=== PATIENT | female | born 1980 | race Two or more races ===

== ENCOUNTER 2016-12-22 19:28 | Emergency (ER) | payer OTHER ==
[2016-12-22 19:45] VITALS: BP 150/94; PULSE 80; TEMP 98.7; BMI 29.8
[2016-12-22] MEDS ORDERED: SODIUM CHLORIDE 500 ML IV STA (20:45)
[2016-12-22] MEDS ORDERED: methylPREDNISolone NA SUCC 125 MG/2 ML VIAL IVPB ONE (20:45)
[2016-12-22] MEDS ORDERED: METOCLOPRAMIDE HCL INJECTION 10 MG/2 ML VIAL IVPB ONE (20:47)
--- NOTE | 2016-12-22 21:00 | PDOC ---
History of Present Illness - General Chief Complaint: Headache Stated Complaint: HEAD PAIN/NUMBNESS Time Seen by Provider: 12/22/16 19:52 History Source: Patient Exam Limitations: No Limitations - History of Present Illness Initial Comments: 12/22/16 20:53 36yo Female patient w/ PmHx: Migraines, Asthma, Hypothyroid, GERD, Gastritis, Carpal Tunnel Surgery, Tubal Ligation, Cholecystectomy, Depression, Anxiety, and "multiple back problems," presents to ED c/o headache (Frontal) which began yesterday and today radiating down face with numbness, and dizziness. Patient was previously under the care of Dr. Luo, and has an appointment with Hayde Persaud 12/26/2016. Patient was recently prescribed Rizatriptan Benzoate 5mg by primary care office but states it is not working. She also was seen and evaluated by Dr. Grant (ophthalmology) and diagnosed with Cataracts, but states she has not gone back to him for follow-up. LNMP: Current. Neurology- Dr. Pretty. PCP- Dr. Santamaria Timing/Duration: reports: increasing, episodic. denies: 1/2 hour, 1 hour, 1-3 hours, 4-6 hours, 24 hours, 1 week, unknown, constant, decreasing, waxing and waning, other Severity: Yes: moderate. No: mild, severe Episode Description: See HPI Associated Symptoms: denies: denies symptoms, confusion, fatigue, fever/chills, insomnia, loss of consciousness, muscle spasms, nausea/vomiting, numbness in legs/feet, paresthesia, ringing in ears, seizures, sleepy, slurred speech, tingling in legs/feet, trouble walking, vision changes, weakness, other Past History - Travel Traveled outside of the country in the last 30 days: No Close contact w/someone who was outside of country & ill: No - Past Medical History Allergies/Adverse Reactions: Allergies Allergy/AdvReac Type Severity Reaction Status Date / Time omeprazole Allergy Verified 12/22/16 19:45 Home Medications: Ambulatory Orders Acetaminophen [Tylenol] 650 mg PO Q6H PRN 10/04/15 Acetaminophen/Caffeine/Butalb [Fioricet -] 1 - 2 tab PO Q6H PRN #28 tablet MDD 8 tabs 12/22/16 Paroxetine HCl [Paxil -] 10 mg PO DAILY 12/22/16 Rizatriptan Benzoate [Maxalt] 5 mg PO ASDIR 12/22/16 Asthma: Yes GI Disorders: Yes (HEARTBURN,ULCER) Psychiatric Problems: Yes (Depression) Thyroid Disease: Yes (HYPERACTIVE) - Surgical History Abdominal Surgery: (TUBAL LIGATION) Cholecystectomy: Yes - Immunization History Td Vaccination: Yes Immunization Up to Date: Yes - Suicide/Smoking/Psychosocial Hx Smoking Status: Yes Smoking History: Current some day smoker Years of Tobacco Use: 0 Have you smoked in the past 12 months: Yes Number of Cigarettes Smoked Daily: 3 Cigars Per Day: 0 Information on smoking cessation initiated: No 'Breaking Loose' booklet given: 08/30/15 Hx Alcohol Use: No Drug/Substance Use Hx: No Substance Use Type: None Neuro Specific PMHX - Complaint Specific PMHX Glaucoma: No Herniated Disk: No Laminectomy: No Migraine: Yes Multiple Sclerosis: No Neuropathy: No TIA: No Review of Systems - Review of Systems Able to Perform ROS?: Yes Is the patient limited Australian proficient: No Constitutional: No: Chills, Fever HEENTM: Yes: Cataracts. No: Eye Pain, Blurred Vision, Double Vision Respiratory: No: Cough, Shortness of Breath, Stridor, Wheezing Cardiac (ROS): No: Chest Pain, Chest Tightness ABD/GI: Yes: Nausea. No: Constipated, Diarrhea, Poor Appetite, Poor Fluid Intake, Vomiting, Abdominal cramping : No: Burning, Dysuria, Flank Pain, Hematuria, Pain Musculoskeletal: No: Back Pain, Muscle Pain, Muscle Weakness, Neck Pain Integumentary: No: Dryness, Erythema, Rash Neurological: Yes: Headache, Numbness, Dizziness. No: Paresthesia, Seizure, Tingling, Tremors, Weakness, Unsteady Gait, Ataxia Psychiatric: No: Anxiety, Depression All Other Systems: Reviewed and Negative *Physical Exam - Vital Signs Last Vital Signs Temp Pulse Resp BP Pulse Ox 98.7 F 80 18 150/94 100 12/22/16 19:41 12/22/16 19:41 12/22/16 19:41 12/22/16 19:41 12/22/16 19:41 - Physical Exam General Appearance: Yes: Nourished, Appropriately Dressed. No: Apparent Distress, Mild Distress, Moderate Distress, Severe Distress HEENT: positive: EOMI, DESMOND, Normal ENT Inspection, Normal Voice, Symmetrical, TMs Normal, Pharynx Normal. negative: Pharyngeal Erythema, Tonsillar Exudate, Tonsillar Erythema, Nasal Congestion, Rhinorrhea, TM Bulging, TM Dull, TM Erythema Neck: positive: Trachea midline, Supple. negative: Normal Thyroid, Rigid, Stridor, Lymphadenopathy (R), Lymphadenopathy (L), Tender lateral Respiratory/Chest: positive: Lungs Clear, Normal Breath Sounds. negative: Chest Tender, Respiratory Distress, Accessory Muscle Use, Labored Respiration, Rapid RR, Paradoxal Breathing, Rhonchi, Stridor, Wheezing Cardiovascular: positive: Regular Rhythm, Regular Rate Gastrointestinal/Abdominal: positive: Normal Bowel Sounds, Soft. negative: Distended, Guarding, Rebound, Tenderness Musculoskeletal: positive: Normal Inspection. negative: CVA Tenderness, Decreased Range of Motion, Vertebral Tenderness Extremity: positive: Normal Capillary Refill, Normal Inspection, Normal Range of Motion. negative: Pedal Edema, Swelling, Calf Tenderness, Erythema, Inflammation Integumentary: positive: Normal Color, Dry, Warm. negative: Erythema, Swelling Neurologic: positive: cognos bi developer II-XII NML intact, Fully Oriented, Alert, Normal Mood/ Affect, Normal Response, Motor Strength 5/5, Finger to Nose. negative: Facial Droop, Numbness, Confused, Disoriented ED Treatment Course - LABORATORY CBC & Chemistry Diagram: 12/22/16 21:00 12/22/16 21:00 - RADIOLOGY Radiology Studies Ordered: Category Date Time Status HEAD CT WITHOUT CONTRAST [CT] Stat CT Scan 12/22/16 20:45 Ordered *DC/Admit/Observation/Transfer Diagnosis at time of Disposition: Migraine headache Qualifiers: Migraine type: without aura Status migrainosus presence: without status migrainosus Intractability: not intractable Qualified Code(s): G43.009 - Migraine without aura, not intractable, without status migrainosus; G43.009 - Migraine without aura, not intractable, without status migrainosus; G43.009 - Migraine without aura, not intractable, without status migrainosus - Discharge Dispostion Disposition: HOME Condition at time of disposition: Improved Admit: No - Prescriptions Prescriptions: Acetaminophen/Caffeine/Butalb [Fioricet -] 1 - 2 tab PO Q6H PRN #28 tablet MDD 8 tabs PRN Reason: Severe headache - Patient Instructions Printed Discharge Instructions: DI for Headache, DI for Migraine Additional Instructions: Follow up with your Neurologist as discussed. Take medications as prescribed. Fioricet for severe headache not relieved by your other medications. Return if symptoms worsen, otherwise keep your appointment as scheduled for the . Print Language: MEXICAN NIH Stroke Scale - Last Known Well Date/Time & Onset Date Last Known Well: 12/22/16 Time Last Known Well: 08:00 - Initial Evaluation Level of consciousness: Alert Ask patient the month and their age: Answers both correctly Ask patient to open & close eyes; make fist and let go: Obeys both correctly Best gaze (horizontal eye movement): Normal Visual field testing: No visual field loss Facial paresis (Show teeth/raise eyebrows/close eyes tight): Normal symmetrical movement Motor Function: Left Arm: Normal Motor Function: Right Arm: Normal (extends arm 90 (or 45) degrees for 10 seconds without drift Motor Function: Left Leg: Normal (extends leg 30 degrees for 5 seconds without drift) Motor Function: Right Leg: Normal (extends leg 30 degrees for 5 seconds without drift) Limb Ataxia: No ataxia Sensory(Use pinprick test arms,legs,trunk,face/side to side): Normal Best language (Describe picture, name items, read sentences): No Aphasia Dysarthria (read several words): Normal articulation Extinction and Inattention: No abnormality - Total Score NIH Stroke Scale Score: 0
[2016-12-22] MEDS ORDERED: METOCLOPRAMIDE HCL INJECTION 10 MG/2 ML VIAL ONE (21:10)
[2016-12-22] MEDS ORDERED: methylPREDNISolone NA SUCC 125 MG/2 ML VIAL ONE (21:11)
[2016-12-22 21:17] LABS: EOSINOPHIL 2.4 % (0-4.5); MCH 28.2 pg (25.7-33.7); MCHC 33.9 g/dl (32.0-36.0); MEAN CELL VOLUME 83.3 fl (80-96); MEAN PLT VOLUME 8.2 fl (7.5-11.1); PLATELET COUNT 308 K/MM3 (134-434); RDW 13.6 % (11.6-15.6); WHITE BLOOD COUNT 8.9 K/mm3 (4.0-10.0)
[2016-12-22 21:48] LABS: ALK PHOS 84 U/L (45-117); ANION GAP 6 (8-16); BILIRUBIN,TOTAL 0.2 mg/dL (0.2-1.0); CALCIUM 8.8 mg/dL (8.5-10.1); CO2 29 mmol/L (21-32); CREATININE 0.5 mg/dL (0.55-1.02); GLUCOSE,RANDOM 88 mg/dL (74-106); SGPT/ALT 25 U/L (12-78); TOT PROT 7.1 g/dl (6.4-8.2)
[2016-12-22 21:50] LABS: SGOT/AST 16 U/L (15-37)
[2016-12-22 22:38] LABS: URINE APPEARANCE CLEAR; URINE BILIRUBIN NEGATIVE (NEGATIVE); URINE BLOOD 1+ (NEGATIVE); URINE COLOR STRAW; URINE GLUCOSE (UA) NEGATIVE (NEGATIVE); URINE KETONE NEGATIVE (NEGATIVE); URINE NITRITE NEGATIVE (NEGATIVE); URINE PROTEIN NEGATIVE (NEGATIVE); URINE UROBILINOGEN NEGATIVE mg/dL (0.2-1.0)
[2016-12-22 22:48] LABS: URINE BACTERIA RARE /hpf (NONE SEEN); URINE HYALINE CAST 3 /lpf; URINE MUCUS RARE; URINE RBC 2 /hpf (0-3); URINE WBC 1 /hpf (3-5)
[2016-12-23 09:46] LABS: URINE LEUK ESTERASE Negative (NEGATIVE)
== END 2016-12-22 23:39 | disposition home or self-care (01) ==
LOC: SUPCPDRO 19:28 → JER 19:28
DX: G43.009 Migraine without aura, not intractable, without status migrainosus (principal)
CPT/HCPCS: 36415; 70450-TC; 80053; 81003; 81015; 84703; 85025; 85651; 99282-25

== ENCOUNTER 2017-03-17 20:40 | Emergency (ER) | payer OTHER ==
--- NOTE | 2017-03-17 20:46 | PDOC ---
Rapid Medical Evaluation Medical Evaluation: Allergies Allergy/AdvReac Type Severity Reaction Status Date / Time omeprazole Allergy Verified 12/22/16 19:45 03/17/17 20:44 I have performed a brief in-person evaluation of this patient. The patient presents with a chief complaint of: Body aches, BOONE, cough w/ fever x 3 weeks. Tx for strep throat 3 weeks ago. H/o asthma. Pertinent physical exam findings:Stable w/ clear lungs I have ordered the following: nothing The patient will proceed to the ED for further evaluation.
[2017-03-17 20:47] VITALS: BP 121/76; PULSE 115; TEMP 99.7; BMI 29.5
--- NOTE | 2017-03-17 21:15 | PDOC ---
History of Present Illness - General Chief Complaint: Asthma Stated Complaint: ASHMA/SOB Time Seen by Provider: 03/17/17 20:43 History Source: Patient Exam Limitations: No Limitations - History of Present Illness Initial Comments: 03/17/17 21:10 This is a 36-year-old female with past medical history of asthma, herniated disc , cholecystectomy, tubal ligation presents emergency Department with 2 days of fever and body aches. Patient states she's been coughing and having bodyaches with a fever for couple of days and everybody else in the house is experiencing similar symptoms. Patient reports intermittent shortness of breath. She denies fevers, chills, chest pain, nausea or vomiting. Past History - Past Medical History Allergies/Adverse Reactions: Allergies Allergy/AdvReac Type Severity Reaction Status Date / Time omeprazole Allergy Verified 12/22/16 19:45 Home Medications: Ambulatory Orders Acetaminophen [Tylenol] 650 mg PO Q6H PRN 10/04/15 Acetaminophen/Caffeine/Butalb [Fioricet -] 1 - 2 tab PO Q6H PRN #28 tablet MDD 8 tabs 12/22/16 Paroxetine HCl [Paxil -] 10 mg PO DAILY 12/22/16 Rizatriptan Benzoate [Maxalt] 5 mg PO ASDIR 12/22/16 Oseltamivir Phosphate [Tamiflu -] 75 mg PO BID #10 capsule 03/17/17 Asthma: Yes COPD: No GI Disorders: Yes (HEARTBURN,ULCER) Psychiatric Problems: Yes (Depression) Thyroid Disease: Yes (HYPERACTIVE) - Surgical History Abdominal Surgery: (TUBAL LIGATION) Cholecystectomy: Yes - Immunization History Td Vaccination: Yes Immunization Up to Date: Yes - Suicide/Smoking/Psychosocial Hx Smoking Status: Yes Smoking History: Former smoker Years of Tobacco Use: 0 Have you smoked in the past 12 months: Yes Number of Cigarettes Smoked Daily: 3 Cigars Per Day: 0 Information on smoking cessation initiated: No 'Breaking Loose' booklet given: 08/30/15 Hx Alcohol Use: No Drug/Substance Use Hx: No Substance Use Type: None Review of Systems - Review of Systems Able to Perform ROS?: Yes Is the patient limited Thai proficient: No Constitutional: Yes: See HPI HEENTM: Yes: See HPI Respiratory: Yes: See HPI Cardiac (ROS): No: Symptoms Reported ABD/GI: No: Symptoms Reported : No: Symptoms Reported Musculoskeletal: No: Symptoms Reported Integumentary: No: Symptoms Reported Neurological: No: Symptoms reported Endocrine: No: Symptoms Reported Hematologic/Lymphatic: No: Symptoms Reported *Physical Exam - Vital Signs Last Vital Signs Temp Pulse Resp BP Pulse Ox 99.7 F H 115 H 18 121/76 98 03/17/17 20:44 03/17/17 20:44 03/17/17 20:44 03/17/17 20:44 03/17/17 20:44 - Physical Exam General Appearance: Yes: Appropriately Dressed. No: Apparent Distress HEENT: positive: Normal ENT Inspection Neck: positive: Trachea midline, Supple Respiratory/Chest: positive: Lungs Clear, Normal Breath Sounds. negative: Respiratory Distress, Accessory Muscle Use Cardiovascular: positive: Regular Rhythm, Regular Rate Gastrointestinal/Abdominal: positive: Normal Bowel Sounds, Soft. negative: Tender Musculoskeletal: positive: Normal Inspection. negative: CVA Tenderness Extremity: positive: Normal Capillary Refill, Normal Inspection Integumentary: positive: Normal Color, Dry, Warm Neurologic: positive: grant coordinator II-XII NML intact, Fully Oriented, Alert, Normal Mood/ Affect, Normal Response, Motor Strength 5/5 Medical Decision Making - Medical Decision Making 03/17/17 21:12 A/P: This is a 36-year-old female with past medical history of asthma, herniated disc , cholecystectomy, tubal ligation presents emergency Department with 2 days of fever and body aches. Patient states she's been coughing and having bodyaches with a fever for couple of days and everybody else in the house is experiencing similar symptoms. Patient reports intermittent shortness of breath. She denies fevers, chills, chest pain, nausea or vomiting. Oropharynx is clear without erythema or exudates. No cervical lymphadenopathy noted. Lungs clear to auscultation bilaterally. Speaking full sentences. S1 and S2 present. No murmur rub or gallop. Abdomen soft nontender nondistended. Diagnosis viral illness likely influenza I'll treat the patient with Tamiflu 75 mg twice a day for the next 5 days. Patient given strict discharge instructions with strict return precautions. *DC/Admit/Observation/Transfer Diagnosis at time of Disposition: URI (upper respiratory infection) Qualifiers: URI type: unspecified viral URI Qualified Code(s): J06.9 - Acute upper respiratory infection, unspecified; B97.89 - Other viral agents as the cause of diseases classified elsewhere; B97.89 - Other viral agents as the cause of diseases classified elsewhere - Discharge Dispostion Disposition: HOME Condition at time of disposition: Stable Admit: No - Prescriptions Prescriptions: Oseltamivir Phosphate [Tamiflu -] 75 mg PO BID #10 capsule - Referrals Referrals: Keeley Farah MD [Primary Care Provider] - - Patient Instructions Additional Instructions: Rest, drink lots of fluids: Teas, water, soups, Pedialyte Saltwater gargles Steamy showers/seem to face break up mucus Avoid contact with others until fevers and cough resolved Lots of handwashing and good hygiene Continue [id number] medications for symptomatic relief Tylenol or Motrin for fever and pain Followup with private physician in one to 2 days as needed Return to emergency department for worsened symptoms, fevers, dehydration - Post Discharge Activity
== END 2017-03-17 22:00 | disposition home or self-care (01) ==
LOC: JERFT 20:40
DX: J06.9 Acute upper respiratory infection, unspecified (principal); B97.89 Other viral agents as the cause of diseases classified elsewhere
CPT/HCPCS: 99281-25

== ENCOUNTER 2018-08-12 00:36 | Emergency (ER) | payer OTHER | END 2018-08-12 04:47 | disposition home or self-care (01) | LOC: JER 00:36 ==

== ENCOUNTER 2018-08-12 14:34 | Emergency (ER) | payer OTHER | END 2018-08-12 20:33 | disposition home or self-care (01) | LOC: JER 14:34 ==

== ENCOUNTER 2018-10-13 11:52 | Day surgery (SDC) | payer OTHER ==
[2018-10-06 16:38] VITALS: BMI 31.8
[2018-10-13] MEDS ORDERED: PROPOFOL 20 ML ONE ×2 (12:55)
[2018-10-13 13:52] VITALS: TEMP 98.5
[2018-10-13 13:54] VITALS: BP 113/63; PULSE 76
== END 2018-10-13 14:25 | disposition home or self-care (01) ==
LOC: FASU-ENDO 11:52
PROVIDERS: ATTEND Internal Medicine Gastroenterology
PROC: 0DJD8ZZ Inspection of Lower Intestinal Tract, Via Natural or Artificial Opening Endoscopic (ICD-10-PCS; principal; 2018-10-13 13:08)
DX: R10.9 Unspecified abdominal pain (principal); K64.8 Other hemorrhoids
CPT/HCPCS: 84703

== ENCOUNTER 2019-01-19 12:06 | Day surgery (SDC) | payer OTHER ==
[2019-01-14 13:08] VITALS: BMI 32.3
[2019-01-19] MEDS ORDERED: PROPOFOL 20 ML ONE (12:19)
[2019-01-19 16:30] VITALS: TEMP 98.2
[2019-01-19 16:40] VITALS: PULSE 85
[2019-01-19 16:54] VITALS: BP 107/69
--- NOTE | 2019-01-21 16:23 | PATH ---
Surgical Pathology Report Patient Name: TRACEY VICENTE [facility]. Rec. #: [id number] /Age/Gender: 1980 (Age: 38) / F Account: [id number] Location: [facility] Taken: 01/19/2019 Received: 01/19/2019 Reported: 01/21/2019 Physicians: Beatriz Aguilar M.D. Specimen(s) Received A: SECOND PORTION OF DUODENUM B: GASTRIC POLYP C: GASTRIC ANTRUM D: GE JUNCTION Clinical History Abdominal pain Postoperative diagnosis: Gastritis, gastric polyp, small hiatal hernia Final Diagnosis A. SECOND PORTION OF DUODENUM, BIOPSY: MODERATE CHRONIC ACTIVE DUODENITIS. B. GASTRIC POLYP, BIOPSY: GASTRIC FUNDIC GLAND POLYP. IMMUNOSTAIN IS NEGATIVE FOR H PYLORI ORGANISMS. C. GASTRIC ANTRUM, BIOPSY: MILD CHRONIC GASTRITIS. IMMUNOSTAIN IS NEGATIVE FOR H. PYLORI ORGANISMS. D. GE JUNCTION, BIOPSY: COLUMNAR (GASTRIC CARDIA-TYPE) MUCOSA SHOWING MILD CHRONIC INFLAMMATION. NEGATIVE FOR INTESTINAL METAPLASIA. Electronically Signed Vikki Vora M.D. Gross Description A. Received in formalin, labeled "biopsy second portion of duodenum" is a devine, irregular portion of soft tissue measuring 0.2 cm. in greatest dimension. The specimen is submitted in toto in one cassette. B. Received in formalin, labeled "biopsy gastric polyp" is a devine, irregular portion of soft tissue measuring 0.2 cm. in greatest dimension. The specimen is submitted in toto in one cassette. C. Received in formalin, labeled "biopsy gastric antrum" is a devine, irregular portion of soft tissue measuring 0.3 cm. in greatest dimension. The specimen is submitted in toto in one cassette. D. Received in formalin, labeled "biopsy GE junction" is a devine, irregular portion of soft tissue measuring 0.2 cm. in greatest dimension. The specimen is submitted in toto in one cassette. 01/20/2019 saudi01/20/2019
== END 2019-01-19 14:45 | disposition home or self-care (01) ==
LOC: FASU-ENDO 12:06
PROVIDERS: ATTEND Internal Medicine Gastroenterology
PROC: 0DB68ZX Excision of Stomach, Via Natural or Artificial Opening Endoscopic, Diagnostic (ICD-10-PCS; 2019-01-19)
PROC: 0DB48ZX Excision of Esophagogastric Junction, Via Natural or Artificial Opening Endoscopic, Diagnostic (ICD-10-PCS; 2019-01-19)
PROC: 0DB98ZX Excision of Duodenum, Via Natural or Artificial Opening Endoscopic, Diagnostic (ICD-10-PCS; principal; 2019-01-19 13:36)
DX: K29.50 Unspecified chronic gastritis without bleeding (principal); K29.80 Duodenitis without bleeding; K44.9 Diaphragmatic hernia without obstruction or gangrene; K31.7 Polyp of stomach and duodenum; K20.9 Esophagitis, unspecified; R10.13 Epigastric pain
CPT/HCPCS: 84703; 88305-TC; 88342-TC

== ENCOUNTER 2019-03-08 22:08 | Emergency (ER) | payer OTHER ==
[2019-03-08 22:13] VITALS: BMI 31.6
--- NOTE | 2019-03-08 22:29 | PDOC ---
History of Present Illness - General Chief Complaint: Pain Stated Complaint: VOMITING/FEVER/PAIN History Source: Patient Exam Limitations: No Limitations - History of Present Illness Initial Comments: 03/08/19 22:25 Patient is a 38-year-old female with esophageal hernia, hyperthyroid not on meds , gastritis, diverticulosis, carpal tunnel right hand, BTL, cholecystectomy, removal of scalp cyst, herniated disc cervical spine, c/o abdominal pain since this morning. States she had about 0130 this morning she ate from [employer] and then woke up with symptoms of nausea, vomiting and abdominal pain. States the pain is continuous stabbing /. States she has had multiple episodes of vomiting now just bilious. States her child who also had [employer] is here for the same symptoms of nausea and vomiting. States she felt warm and had chills. No diarrhea. No flu shot this year. LMP 02/16/2019 PMD: Dr. Avelar PMHX: As above PSOCHX: neg etoh, drug, neg cig ALL: NKDA GENERAL/CONSTITUTIONAL: [No fever or chills. No weakness. No weight change.] HEAD, EYES, EARS, NOSE AND THROAT: [No change in vision. No ear pain or discharge. No sore throat.] CARDIOVASCULAR: [No chest pain or shortness of breath.] RESPIRATORY: [No cough, wheezing, or hemoptysis.] GASTROINTESTINAL: [(+) nausea, vomiting, (-)diarrhea or constipation. No rectal bleeding.] GENITOURINARY: [No dysuria, frequency, or change in urination.] MUSCULOSKELETAL: [No joint or muscle swelling or pain. No neck or back pain.] SKIN AND BREASTS: [No rash or easy bruising.] NEUROLOGIC: [No headache, vertigo, loss of consciousness, or loss of sensation.] PSYCHIATRIC: [No depression or anxiety.] ENDOCRINE: [No increased thirst. No abnormal weight change.] HEMATOLOGIC/LYMPHATIC: [No anemia, easy bleeding, or history of blood clots.] ALLERGIC/IMMUNOLOGIC: [No hives or skin allergy. No latex allergy.] GENERAL: [The patient is awake, alert, and fully oriented, in mild distress.] HEAD: [Normal with no signs of trauma.] EYES: [Pupils equal, round and reactive to light, extraocular movements intact, sclera anicteric, conjunctiva clear.] ENT: [Ears normal, nares patent, oropharynx clear without exudates. Moist mucous membranes.] NECK: [Normal range of motion, supple without lymphadenopathy, JVD, or masses.] LUNGS: [Breath sounds equal, clear to auscultation bilaterally. No wheezes, and no crackles.] HEART: [Regular rate and rhythm, normal S1 and S2 without murmur, rub.] ABDOMEN: [Soft, generalized abdominal tenderness-most on the left, normoactive bowel sounds. No guarding, no rebound. No masses.] EXTREMITIES: [Normal range of motion, no edema. No clubbing or cyanosis. No cords, erythema, or tenderness.] NEUROLOGICAL: [Cranial nerves II through XII grossly intact. Normal speech, normal gait.] PSYCH: [Normal mood, normal affect.] SKIN: [Warm, Dry, normal turgor, no rashes or lesions noted.] Past History - Past Medical History Allergies/Adverse Reactions: Allergies Allergy/AdvReac Type Severity Reaction Status Date / Time No Known Allergies Allergy Verified 01/14/19 12:54 Home Medications: Ambulatory Orders Albuterol Sulfate Inhaler - [Ventolin Hfa Inhaler -] 1 - 2 inh PO PRN PRN Tramadol HCl 50 mg PO PRN PRN 10/06/18 Cyclobenzaprine HCl 10 mg PO TID PRN 01/14/19 Nortriptyline HCl [Pamelor -] 10 mg PO HS 01/14/19 Omeprazole 20 mg PO DAILY 01/14/19 Oxycodone HCl/Acetaminophen [Percocet 5-325 mg Tablet] 1 tab PO TID PRN Tramadol HCl 50 mg PO Q8H PRN 01/14/19 Doxycycline Hyclate 100 mg PO BID 01/19/19 Metronidazole 500 mg PO BID 01/19/19 Anemia: No Asthma: Yes Cancer: No Cardiac Disorders: Yes (HEART MURMUR) CVA: No COPD: No CHF: No Dementia: No Diabetes: No GI Disorders: Yes (HEARTBURN,ULCER) Disorders: No HTN: Yes Hypercholesterolemia: No Liver Disease: No Psychiatric Problems: Yes (Depression) Seizures: No Thyroid Disease: Yes (HYPERACTIVE) - Surgical History Abdominal Surgery: Yes (TUBAL LIGATION) Appendectomy: No Cardiac Surgery: No Cholecystectomy: Yes Lung Surgery: No Neurologic Surgery: No Orthopedic Surgery: Yes (CTR) - Immunization History Td Vaccination: Yes Immunization Up to Date: Yes - Psycho Social/Smoking Cessation Hx Smoking Status: Yes Smoking History: Never smoked Years of Tobacco Use: 0 Have you smoked in the past 12 months: No Number of Cigarettes Smoked Daily: 3 If you are a former smoker, when did you quit?: 2016 Cigars Per Day: 0 'Breaking Loose' booklet given: 08/30/15 Hx Alcohol Use: No Drug/Substance Use Hx: No Substance Use Type: None Hx Substance Use Treatment: No Abd/GI Specific PMHX - Complaint Specific PMHX GI Ulcer Disease: No *Physical Exam - Vital Signs Last Vital Signs Temp Pulse Resp BP Pulse Ox 98.1 F 115 H 19 143/84 95 03/08/19 22:10 03/08/19 22:10 03/08/19 22:10 03/08/19 22:10 03/08/19 22:10 ED Treatment Course - LABORATORY CBC & Chemistry Diagram: 03/08/19 23:00 03/08/19 23:00 Medical Decision Making - Medical Decision Making 03/08/19 22:25 Patient is a 38-year-old female with esophageal hernia, hyperthyroid not on meds , gastritis, diverticulosis, carpal tunnel right hand, BTL, cholecystectomy, removal of scalp cyst, herniated disc cervical spine, c/o abdominal pain since this morning. States she had about 0130 this morning she ate from [employer] and then woke up with symptoms of nausea, vomiting and abdominal pain. States the pain is continuous stabbing /10. States she has had multiple episodes of vomiting now just bilious. States her child who also had [employer] is here for the same symptoms of nausea and vomiting. States she felt warm and had chills. No diarrhea. No flu shot this year. LMP 02/16/2019. Symptoms consistent with gastroenteritis/enteritis secondary to food contact. We will get labs IV fluids, antinausea, pain meds Will send for CT scan of abdomen due to history of diverticulosis. Reassess No acute findings on the CT scan except for constipation. Labs reviewed Patient given p.o. challenge and is tolerating. At discharge patient states symptoms are resolved. Abdomen is soft and nontender Selected Entries 03/09/19 02:15 Temperature 99.4 F Pulse Rate [ 96 H Left Radial] Respiratory 18 Rate O2 Sat by Pulse 95 Oximetry (%) I discussed the physical exam findings, ancillary test results and final diagnoses with the patient. I answered all of the patient's questions. The patient was satisfied with the care received and felt comfortable with the discharge plan and treatment plan. The Patient agrees to follow up with the primary care physician within 24-72 hours. 03/09/19 02:42 Discharge - Discharge Information Problems reviewed: Yes Clinical Impression/Diagnosis: Abdominal pain Qualifiers: Abdominal location: unspecified location Qualified Code(s): R10.9 - Unspecified abdominal pain Nausea and vomiting Qualifiers: Vomiting type: unspecified Vomiting Intractability: non-intractable Qualified Code(s): R11.2 - Nausea with vomiting, unspecified Condition: Stable Disposition: HOME - Follow up/Referral Referrals: Beatriz Avelar MD [Primary Care Provider] - - Patient Discharge Instructions Patient Printed Discharge Instructions: DI for Abdominal Pain-Adult, Nausea and Vomiting-Adult Additional Instructions: Your Discharge Instructions: You must call primary care physician within 24 hours to arrange follow-up. Return to the Emergency Department with any new, persistent or worsening symptoms, for fever, chills, SOB, dizziness or any other concerning changes that may occur. Continue Tylenol and Motrin for your symptoms of pain. We will send a prescription to your pharmacy for antinausea. Continue your Ranatidine prescribed. - Post Discharge Activity
[2019-03-08] MEDS ORDERED: SODIUM CHLORIDE 0.9% 500 ML INFUS.BAG IV ONE (22:35)
[2019-03-08] MEDS ORDERED: morphine CARPU-JECT 4 MG/1 ML DISP.SYRIN IVPUSH ONE (22:35)
[2019-03-08] MEDS ORDERED: ONDANSETRON 4 MG/2 ML VIAL IVPUSH ONE (22:35)
--- NOTE | 2019-03-08 22:36 | PDOC ---
*Physical Exam - Vital Signs Last Vital Signs Temp Pulse Resp BP Pulse Ox 98.1 F 115 H 19 143/84 95 03/08/19 22:10 03/08/19 22:10 03/08/19 22:10 03/08/19 22:10 03/08/19 22:10 ED Treatment Course - LABORATORY CBC & Chemistry Diagram: 03/08/19 23:00 03/08/19 23:00 Medical Decision Making - Medical Decision Making 03/08/19 22:36 Patient seen by the advanced practice provider under my direct supervision. Ancillary testing reviewed as necessary. I agree with plan as outlined by the advanced practice provider. Discharge - Discharge Information Problems reviewed: Yes Clinical Impression/Diagnosis: Abdominal pain Qualifiers: Abdominal location: unspecified location Qualified Code(s): R10.9 - Unspecified abdominal pain Nausea and vomiting Qualifiers: Vomiting type: unspecified Vomiting Intractability: non-intractable Qualified Code(s): R11.2 - Nausea with vomiting, unspecified Condition: Stable Disposition: HOME - Follow up/Referral Referrals: Beatriz Avelar MD [Primary Care Provider] - - Patient Discharge Instructions Patient Printed Discharge Instructions: DI for Abdominal Pain-Adult, Nausea and Vomiting-Adult Additional Instructions: Your Discharge Instructions: You must call primary care physician within 24 hours to arrange follow-up. Return to the Emergency Department with any new, persistent or worsening symptoms, for fever, chills, SOB, dizziness or any other concerning changes that may occur. Continue Tylenol and Motrin for your symptoms of pain. We will send a prescription to your pharmacy for antinausea. Continue your Ranatidine prescribed. - Post Discharge Activity
[2019-03-08] MEDS ORDERED: ONDANSETRON 4 MG/2 ML VIAL ONE (22:41)
[2019-03-08] MEDS ORDERED: morphine SULFATE 4 MG/ML VIAL ONE (22:41)
[2019-03-08] MEDS ORDERED: SODIUM CHLORIDE 1,000 ML IV SCH (22:45)
[2019-03-08] MEDS ORDERED: FAMOTIDINE 20 MG/50 ML IVPB 20 MG/50 ML MG IVPB ONE ×2 (22:52→22:58)
[2019-03-08 23:11] LABS: BASO % 0.5 % (0-2.0); EOS % 0.8 % (0-4.5); HEMATOCRIT 38.2 % (32.4-45.2); HEMOGLOBIN 12.8 GM/dL (10.7-15.3); LYMPH % 5.9 % (8-40); MCH 27.2 pg (25.7-33.7); MCHC 33.5 g/dl (32.0-36.0); MEAN CELL VOLUME 81.1 fl (80-96); MEAN PLT VOLUME 8.2 fl (7.5-11.1); MONO % 3.7 % (3.8-10.2); NEUT % 89.1 % (42.8-82.8); PLATELET COUNT 286 K/MM3 (134-434); RBC 4.71 M/mm3 (3.60-5.2); RDW 13.5 % (11.6-15.6); WHITE BLOOD COUNT 10.2 K/mm3 (4.0-10.0)
[2019-03-08 23:15] LABS: EPI CELLS 1.6 /HPF (0-5/HPF); HYALINE CASTS 1 /lpf (0-8); URINE APPEARANCE CLEAR; URINE BACTERIA 13.2 /hpf (NEGATIVE); URINE BILIRUBIN NEGATIVE (NEGATIVE); URINE COLOR YELLOW; URINE GLUCOSE (UA) NEGATIVE (NEGATIVE); URINE KETONE NEGATIVE (NEGATIVE); URINE LEUK ESTERASE NEGATIVE (NEGATIVE); URINE NITRITE NEGATIVE (NEGATIVE); URINE PROTEIN NEGATIVE (NEGATIVE); URINE RBC 17 /hpf (0-4); URINE WBC 0 /hpf (0-5)
[2019-03-08 23:36] LABS: ALBUMIN 3.9 g/dl (3.4-5.0); BILIRUBIN,TOTAL 0.5 mg/dL (0.2-1); BLOOD UREA NITROGEN 12.4 mg/dL (7-18); CALCIUM 8.5 mg/dL (8.5-10.1); CREATININE 0.5 mg/dL (0.55-1.3); POTASSIUM 3.6 mmol/L (3.5-5.1); TOT PROT 6.9 g/dl (6.4-8.2)
[2019-03-09 02:23] VITALS: BP 112/75; PULSE 96; TEMP 99.4
== END 2019-03-09 04:23 | disposition home or self-care (01) ==
LOC: JER 22:08
PROC: 3E033GC Introduction of Other Therapeutic Substance into Peripheral Vein, Percutaneous Approach (ICD-10-PCS; principal; 2019-03-08)
PROC: 3E033GC Introduction of Other Therapeutic Substance into Peripheral Vein, Percutaneous Approach (ICD-10-PCS; 2019-03-08)
PROC: 3E033NZ Introduction of Analgesics, Hypnotics, Sedatives into Peripheral Vein, Percutaneous Approach (ICD-10-PCS; 2019-03-08)
DX: R10.9 Unspecified abdominal pain (principal); R11.2 Nausea with vomiting, unspecified; I10 Essential (primary) hypertension; E05.90 Thyrotoxicosis, unspecified without thyrotoxic crisis or storm; F32.9 Major depressive disorder, single episode, unspecified; Z87.09 Personal history of other diseases of the respiratory system; Z87.19 Personal history of other diseases of the digestive system; Z98.51 Tubal ligation status; Z90.49 Acquired absence of other specified parts of digestive tract
CPT/HCPCS: 36415; 74177-TC; 80053; 81003; 82150; 83690; 84703; 85025; 99282-25; J7030

== ENCOUNTER 2021-07-04 21:51 | Emergency (ER) | payer OTHER ==
[2021-07-04 22:11] VITALS: BP 127/77; PULSE 91; TEMP 97.7; BMI 25.2
[2021-07-04] MEDS ORDERED: DEXAMETHASONE LIQUID 0.5 MG/5 ML PO ONE (22:26)
[2021-07-04] MEDS ORDERED: DEXAMETHASONE SOD PHOSPHATE 10 MG/1 ML VIAL ONE (22:36)
[2021-07-04] MEDS ORDERED: ALBUTEROL SO4 2.5/IPRATROPIUM 0.5 INH SOL 3 ML VIAL.NEB. NEB ONE (22:36)
[2021-07-04] MEDS: ALBUTEROL SO4 2.5/IPRATROPIUM 0.5 INH SOL 3 ML VIAL.NEB. NEB SCH (22:47)
[2021-07-05 00:28] LABS: BASO % 0.5 % (0-2.0); EOS % 1.7 % (0-4.5); HEMATOCRIT 37.1 % (32.4-45.2); HEMOGLOBIN 12.8 GM/dL (10.7-15.3); LYMPH % 31.1 % (8-40); MCH 28.1 pg (25.7-33.7); MCHC 34.4 g/dl (32.0-36.0); MEAN CELL VOLUME 81.7 fl (80-96); MEAN PLT VOLUME 7.3 fl (7.5-11.1); MONO % 5.8 % (3.8-10.2); NEUT % 60.9 % (42.8-82.8); PLATELET COUNT 371 10^3/uL (134-434); RBC 4.54 M/mm3 (3.60-5.2); RDW 13.2 % (11.6-15.6); WHITE BLOOD COUNT 7.4 K/mm3 (4.0-10.0)
[2021-07-05 00:32] LABS: EPI CELLS 8 /uL (0-25.1); HYALINE CASTS 2 /uL (0-3.1); PH,URINE 5.5 (5.0-8.0); URINE APPEARANCE CLEAR; URINE BACTERIA 510 /uL (0-1359); URINE BILIRUBIN NEGATIVE (NEGATIVE); URINE COLOR YELLOW; URINE GLUCOSE (UA) NEGATIVE (NEGATIVE); URINE KETONE TRACE (NEGATIVE); URINE LEUK ESTERASE NEGATIVE (NEGATIVE); URINE NITRITE NEGATIVE (NEGATIVE); URINE PROTEIN NEGATIVE (NEGATIVE); URINE RBC 10 /uL (0-23.9); URINE WBC 7 /uL (0-25.8)
[2021-07-05] MEDS ORDERED: ACETAMINOPHEN 1000 MG/100 ML BAG IVPB ONE (00:45)
[2021-07-05 00:49] LABS: ALBUMIN 4.1 g/dl (3.4-5.0); CALCIUM 9.4 mg/dL (8.5-10.1)
[2021-07-05] MEDS ORDERED: ACETAMINOPHEN INJECTION 100 ML IVPB ONE (00:49)
[2021-07-05 00:50] LABS: BLOOD UREA NITROGEN 13.7 mg/dL (7-18)
[2021-07-05 00:53] LABS: CREATININE 0.6 mg/dL (0.55-1.3)
[2021-07-05 00:54] LABS: BILIRUBIN,TOTAL 0.2 mg/dL (0.2-1); TOT PROT 7.2 g/dl (6.4-8.2)
[2021-07-05 08:38] LABS: URINE CRYSTALS CA OXALATES /hpf
== END 2021-07-05 02:51 | disposition home or self-care (01) ==
LOC: JER 21:51
PROC: 3E0333Z Introduction of Anti-inflammatory into Peripheral Vein, Percutaneous Approach (ICD-10-PCS; principal; 2021-07-04)
PROC: 3E0F7GC Introduction of Other Therapeutic Substance into Respiratory Tract, Via Natural or Artificial Opening (ICD-10-PCS; 2021-07-04)
DX: R19.7 Diarrhea, unspecified (principal); R10.32 Left lower quadrant pain; J06.9 Acute upper respiratory infection, unspecified
CPT/HCPCS: 36415; 71046-TC-FY; 74177-TC; 80053; 81003; 84703; 85025; 87086; 87651; 87804; 87807; 99285-25; C9803-CS; U0003; U0005

== ENCOUNTER 2021-07-23 19:16 | Emergency (ER) | payer OTHER ==
[2021-07-23 19:47] VITALS: BP 139/77; PULSE 76; TEMP 98.1; BMI 29.5
[2021-07-23] MEDS ORDERED: SUCRALFATE 1 GM TABLET (FP) PO ONE (21:11)
[2021-07-23] MEDS ORDERED: MAG HYDROX/AL HYDROX/SIMETH 30 ML UNIT-DOSE CUP PO ONE (21:11)
[2021-07-23] MEDS ORDERED: FAMOTIDINE 20 MG/50 ML IVPB 20 MG/50 ML MG IVPB ONE (21:11)
[2021-07-23] MEDS ORDERED: FAMOTIDINE 10 MG/ML VIAL IVPB ONE (21:16)
[2021-07-23] MEDS ORDERED: SUCRALFATE 1 GM TABLET (FP) ONE (21:16)
[2021-07-23] MEDS ORDERED: MAG HYDROX/AL HYDROX/SIMETH 30 ML UNIT-DOSE CUP ONE (21:16)
[2021-07-23 21:42] LABS: BASO % 0.6 % (0-2.0); EOS % 2.4 % (0-4.5); HEMATOCRIT 36.4 % (32.4-45.2); HEMOGLOBIN 12.2 GM/dL (10.7-15.3); LYMPH % 31.7 % (8-40); MCH 27.5 pg (25.7-33.7); MCHC 33.6 g/dl (32.0-36.0); MEAN CELL VOLUME 81.9 fl (80-96); MEAN PLT VOLUME 7.8 fl (7.5-11.1); MONO % 5.2 % (3.8-10.2); NEUT % 60.1 % (42.8-82.8); PLATELET COUNT 375 10^3/uL (134-434); RBC 4.44 M/mm3 (3.60-5.2); RDW 13.3 % (11.6-15.6); WHITE BLOOD COUNT 6.8 K/mm3 (4.0-10.0)
[2021-07-23 21:51] LABS: CALCIUM 8.9 mg/dL (8.5-10.1)
[2021-07-23 21:52] LABS: ALBUMIN 3.7 g/dl (3.4-5.0); BLOOD UREA NITROGEN 17.9 mg/dL (7-18)
[2021-07-23 21:55] LABS: CREATININE 0.5 mg/dL (0.55-1.3)
[2021-07-23 21:57] LABS: BILIRUBIN,TOTAL 0.3 mg/dL (0.2-1); TOT PROT 6.6 g/dl (6.4-8.2)
[2021-07-23] MEDS ORDERED: ACETAMINOPHEN 1000 MG/100 ML BAG IVPB ONE (22:07)
[2021-07-23] MEDS ORDERED: ACETAMINOPHEN INJECTION 100 ML IVPB ONE (22:10)
[2021-07-23] MEDS ORDERED: CELECOXIB 100 MG CAPSULE PO ONE (22:32)
[2021-07-24] MEDS ORDERED: BENZOCAINE/MENTH/CETYLPYRD CL 1 EACH LOZENGE MM ONE (01:52)
== END 2021-07-24 01:41 | disposition home or self-care (01) ==
LOC: JER 19:16
PROC: 3E033GC Introduction of Other Therapeutic Substance into Peripheral Vein, Percutaneous Approach (ICD-10-PCS; principal; 2021-07-23)
DX: R07.9 Chest pain, unspecified (principal); R05.9 Cough, unspecified
CPT/HCPCS: 36415; 71046-TC-FY; 80053; 84484; 84703; 85025; 93005; 93010; 96365; 96375; 99285-25

== ENCOUNTER 2021-12-19 16:00 | Emergency (ER) | payer OTHER ==
[2021-12-19 16:32] VITALS: BP 138/94; PULSE 76; RESP 18; TEMP 98.4; BMI 27.3
[2021-12-19] MEDS ORDERED: METHOCARBAMOL 500 MG TABLET PO ONE (17:04)
[2021-12-19] MEDS ORDERED: KETOROLAC TROMETHAMINE 30 MG/1 ML VIAL IM ONE (17:04)
[2021-12-19] MEDS ORDERED: KETOROLAC TROMETHAMINE 30 MG/1 ML VIAL ONE (17:05)
[2021-12-19] MEDS ORDERED: METHOCARBAMOL 500 MG TABLET ONE (17:05)
== END 2021-12-19 18:47 | disposition home or self-care (01) ==
LOC: JER 16:00 → JERFT 16:00
PROC: 3E0233Z Introduction of Anti-inflammatory into Muscle, Percutaneous Approach (ICD-10-PCS; principal; 2021-12-19)
DX: M25.521 Pain in right elbow (principal); M25.522 Pain in left elbow
CPT/HCPCS: 73030-TC-LT-FY; 73030-TC-RT-FY; 73070-TC-LT-FY; 73070-TC-RT-FY; 73562-TC-RT-FY; 99284-25

== ENCOUNTER 2023-02-11 19:17 | Emergency (ER) | payer OTHER ==
[2023-02-11 19:25] VITALS: BMI 28.3
[2023-02-11] MEDS ORDERED: METOCLOPRAMIDE HCL INJECTION 10 MG/2 ML VIAL IVPB ONE (20:00)
[2023-02-11] MEDS ORDERED: METOCLOPRAMIDE HCL INJECTION 10 MG/2 ML VIAL ONE (20:10)
[2023-02-11 20:40] LABS: BASO % 0.7 % (0-2.0); HEMATOCRIT 37.8 % (32.4-45.2); HEMOGLOBIN 12.8 GM/dL (10.7-15.3); LYMPH % 20.5 % (8-40); MCH 27.6 pg (25.7-33.7); MCHC 33.9 g/dl (32.0-36.0); MEAN CELL VOLUME 81.5 fl (80-96); MEAN PLT VOLUME 7.2 fl (7.5-11.1); MONO % 8.9 % (3.8-10.2); NEUT % 67.9 % (42.8-82.8); PLATELET COUNT 354 10^3/uL (134-434); RBC 4.64 M/mm3 (3.60-5.2); RDW 13.9 % (11.6-15.6); WHITE BLOOD COUNT 7.1 K/mm3 (4.0-10.0)
[2023-02-11 20:55] LABS: CALCIUM 8.4 mg/dL (8.5-10.1)
[2023-02-11 20:56] LABS: ALBUMIN 3.7 g/dl (3.4-5.0); BLOOD UREA NITROGEN 19.7 mg/dL (7-18); MAGNESIUM 2.4 mg/dL (1.8-2.4)
[2023-02-11 20:59] LABS: CREATININE 1.2 mg/dL (0.55-1.3)
[2023-02-11 21:00] LABS: BILIRUBIN,TOTAL 0.4 mg/dL (0.2-1); TOT PROT 6.8 g/dl (6.4-8.2)
[2023-02-11] MEDS ORDERED: SODIUM CHLORIDE 0.9% 500 ML INFUS.BAG IV ONE (22:16)
[2023-02-11] MEDS ORDERED: ACETAMINOPHEN 1000 MG/100 ML BAG IVPB ONE (22:16)
[2023-02-11] MEDS ORDERED: ACETAMINOPHEN INJECTION 100 ML IVPB ONE (22:46)
[2023-02-11] MEDS ORDERED: methylPREDNISolone NA SUCC 125 MG/2 ML VIAL IVPUSH ONE (22:52)
[2023-02-11] MEDS ORDERED: methylPREDNISolone NA SUCC 125 MG/2 ML VIAL ONE (22:57)
[2023-02-12 01:26] VITALS: BP 119/72; PULSE 79; RESP 18; TEMP 97.9
== END 2023-02-12 02:04 | disposition home or self-care (01) ==
LOC: JER 19:17
PROC: 3E033NZ Introduction of Analgesics, Hypnotics, Sedatives into Peripheral Vein, Percutaneous Approach (ICD-10-PCS; principal; 2023-02-11)
PROC: 3E033GC Introduction of Other Therapeutic Substance into Peripheral Vein, Percutaneous Approach (ICD-10-PCS; 2023-02-11)
PROC: 3E033GC Introduction of Other Therapeutic Substance into Peripheral Vein, Percutaneous Approach (ICD-10-PCS; 2023-02-11)
DX: R05.9 Cough, unspecified (principal); R09.81 Nasal congestion; R51.9 Headache, unspecified; R20.2 Paresthesia of skin; R45.7 State of emotional shock and stress, unspecified; S16.1XXA Strain of muscle, fascia and tendon at neck level, initial encounter; X58.XXXA Exposure to other specified factors, initial encounter; Z20.822 Contact with and (suspected) exposure to COVID-19
CPT/HCPCS: 0241U-QW; 36415; 70450-TC; 70496-TC; 70498-TC; 71045-TC-FY; 80053; 83735; 84443; 84484; 84703; 85025; 93005; 93010; 99285-25

== ENCOUNTER 2023-09-11 07:10 | Emergency (ER) | payer OTHER ==
[2023-09-11 07:22] VITALS: BP 139/91; PULSE 75; RESP 15; TEMP 98.3; BMI 31.6
[2023-09-11] MEDS ORDERED: FAMOTIDINE 10 MG TABLET ONE (07:53)
[2023-09-11] MEDS ORDERED: MAG HYDROX/AL HYDROX/SIMETH 30 ML UNIT-DOSE CUP ONE (07:53)
[2023-09-11] MEDS ORDERED: ONDANSETRON 4 MG/2 ML VIAL ONE (07:53)
[2023-09-11] MEDS: MAG HYDROX/AL HYDROX/SIMETH 30 ML UNIT-DOSE CUP PO ONE (08:10)
[2023-09-11] MEDS: FAMOTIDINE 10 MG TABLET PO ONE (08:10)
[2023-09-11] MEDS: SODIUM CHLORIDE 0.9% 500 ML INFUS.BAG IV ONE (08:10)
[2023-09-11] MEDS: ONDANSETRON 4 MG/2 ML VIAL IVPUSH ONE (08:10)
[2023-09-11] MEDS: SUCRALFATE 1 GM/10 ML UNIT DOSE CUPS PO ONE (08:11)
[2023-09-11 08:21] LABS: BASO % 0.4 % (0-2.0); EOS % 2.3 % (0-4.5); HEMATOCRIT 36.8 % (32.4-45.2); HEMOGLOBIN 12.9 GM/dL (10.7-15.3); LYMPH % 19.8 % (8-40); MCH 28.2 pg (25.7-33.7); MCHC 35.1 g/dl (32.0-36.0); MEAN CELL VOLUME 80.4 fl (80-96); MEAN PLT VOLUME 7.5 fl (7.5-11.1); MONO % 6.3 % (3.8-10.2); NEUT % 71.2 % (42.8-82.8); PLATELET COUNT 337 10^3/uL (134-434); RBC 4.58 M/mm3 (3.60-5.2); RDW 13.3 % (11.6-15.6); WHITE BLOOD COUNT 8.2 K/mm3 (4.0-10.0)
[2023-09-11] MEDS ORDERED: SUCRALFATE 1 GM TABLET (FP) ONE (08:27)
[2023-09-11 08:41] LABS: POTASSIUM 3.6 mmol/L (3.5-5.1)
[2023-09-11 08:43] LABS: ALBUMIN 3.7 g/dl (3.4-5.0); BLOOD UREA NITROGEN 13.7 mg/dL (7-18); CALCIUM 8.2 mg/dL (8.5-10.1)
[2023-09-11 08:46] LABS: CREATININE 0.4 mg/dL (0.55-1.3)
[2023-09-11 08:48] LABS: BILIRUBIN,TOTAL 0.5 mg/dL (0.2-1); TOT PROT 6.8 g/dl (6.4-8.2)
[2023-09-11] MEDS ORDERED: PANTOPRAZOLE SODIUM 40 MG VIAL ONE (09:38)
[2023-09-11] MEDS: PANTOPRAZOLE SODIUM 40 MG VIAL IVPUSH ONE (09:42)
== END 2023-09-11 10:18 | disposition home or self-care (01) ==
LOC: JER 07:10
PROC: 3E033GC Introduction of Other Therapeutic Substance into Peripheral Vein, Percutaneous Approach (ICD-10-PCS; principal; 2023-09-11)
PROC: 3E033GC Introduction of Other Therapeutic Substance into Peripheral Vein, Percutaneous Approach (ICD-10-PCS; 2023-09-11)
DX: R10.13 Epigastric pain (principal); K29.50 Unspecified chronic gastritis without bleeding; R11.0 Nausea; T88.7XXA Unspecified adverse effect of drug or medicament, initial encounter
CPT/HCPCS: 36415; 80053; 83690; 84703; 85025; 93005; 93010; 99284-25

== ENCOUNTER 2023-09-16 11:16 | Day surgery (SDC) | payer OTHER ==
[2023-09-16 11:34] VITALS: RESP 18; BMI 31.6
[2023-09-16 13:05] VITALS: PULSE 78; TEMP 97.5
[2023-09-16 13:48] VITALS: BP 110/74
== END 2023-09-16 13:45 | disposition home or self-care (01) ==
LOC: FASU-ENDO 11:16
PROVIDERS: ATTEND Internal Medicine Gastroenterology
PROC: 0DB68ZX Excision of Stomach, Via Natural or Artificial Opening Endoscopic, Diagnostic (ICD-10-PCS; 2023-09-16)
PROC: 0DB48ZX Excision of Esophagogastric Junction, Via Natural or Artificial Opening Endoscopic, Diagnostic (ICD-10-PCS; 2023-09-16)
PROC: 0DB98ZX Excision of Duodenum, Via Natural or Artificial Opening Endoscopic, Diagnostic (ICD-10-PCS; principal; 2023-09-16 12:37)
DX: K44.9 Diaphragmatic hernia without obstruction or gangrene (principal); K25.9 Gastric ulcer, unspecified as acute or chronic, without hemorrhage or perforation; K20.90 Esophagitis, unspecified without bleeding
CPT/HCPCS: 81025; 88305-TC; 88342-TC

== ENCOUNTER 2024-01-22 06:08 | Day surgery (SDC) | payer OTHER ==
[2024-01-19 13:31] VITALS: BMI 31.6
[2024-01-22] MEDS ORDERED: LIDOCAINE 1%/EPI 1:100000 (20 ML MULTI DOSE VIAL) ONE (07:29)
[2024-01-22] MEDS ORDERED: PROPOFOL 20 ML ONE ×2 (07:46→08:23)
[2024-01-22] MEDS ORDERED: MIDAZOLAM HCL 2 MG/2 ML SINGLE DOSE VIAL ONE (07:46)
[2024-01-22] MEDS ORDERED: BUPIVACAINE HCL/PF 0.25% (2.5MG/ML) 10 ML VIAL ONE (08:23)
[2024-01-22] MEDS ORDERED: oxyCODONE HCL 5 MG TABLET PO PRN (08:37)
[2024-01-22] MEDS ORDERED: ONDANSETRON 4 MG/2 ML VIAL IVPUSH PRN (08:37)
[2024-01-22] MEDS ORDERED: LACTATED RINGERS SOLUTION 1,000 ML IV SCH (08:45)
[2024-01-22] MEDS: oxyCODONE HCL 5 MG TABLET ONE (09:29)
[2024-01-22 10:46] VITALS: RESP 16; TEMP 97.3
[2024-01-22 10:54] VITALS: BP 114/80; PULSE 80
== END 2024-01-22 10:20 | disposition home or self-care (01) ==
LOC: FASU 06:08
PROVIDERS: ATTEND Orthopaedic Surgery
PROC: 01N50ZZ Release Median Nerve, Open Approach (ICD-10-PCS; principal; 2024-01-22 08:11)
DX: G56.02 Carpal tunnel syndrome, left upper limb (principal)
CPT/HCPCS: 81025; 94760